=== PATIENT | male | born 1995 | race Caucasian/White ===

== ENCOUNTER 2016-05-20 15:34 | Emergency (ER) | payer BC ==
[~2016-05-20] VITALS: Ht 182.9 cm; Wt 95.0 kg
[2016-05-20 15:35] VITALS: TEMP 37.9; Ht 182.9 cm; Wt 95.0 kg
[2016-05-20] MEDS ORDERED: KETOROLAC TROMETHAMINE 30 MG/ML VIAL IV STA (15:46)
[2016-05-20] MEDS ORDERED: SODIUM CHLORIDE 0.9% 1000ML 1,000 ML IV STA ×2 (15:46→16:06)
[2016-05-20] MEDS ORDERED: DiphenhydrAMINE HCL 50 MG/ML VIAL IV STA (15:46)
[2016-05-20] MEDS ORDERED: PROCHLORPERAZINE 5 MG/ML 2 ML VIAL IV STA (15:46)
[2016-05-20] MEDS ORDERED: FAMOTIDINE 20MG/102 ML D5W IV STA (15:49)
[2016-05-20] MEDS ORDERED: [UNRECOGNIZED DRUG - OTHER] IM (15:52)
[2016-05-20 16:12] LABS: BASO % 0.1 %; BASO ABS # 0.01 K/uL (0-0.2); COMPLETE YES; EOS % 1.1 %; HEMATOCRIT 50.6 % (42-52); IG% 0.3 %; LYMPH ABS # 0.69 K/uL (1.2-3.4); MEAN CELL VOLUME 86.1 fL (80-100); MEAN PLATELET VOLUME 10.5 fL (7.4-10.4); MONO % 5.1 %; NEUT % 86.4 %; PLATELET COUNT 200 K/uL (130-400); RED BLOOD COUNT 5.88 M/uL (4.7-6.1); WHITE BLOOD COUNT 9.92 K/uL (4.8-10.8)
[2016-05-20 16:23] LABS: BUN/CREATININE RATIO 13.4 (10-20); CALCIUM 9.5 mg/dl (8.5-10.1); CREATININE 1.2 mg/dl (0.60-1.40); POTASSIUM 3.6 mmol/L (3.5-5.1)
[2016-05-20 18:07] LABS: URINE APPEARANCE CLEAR (CLEAR); URINE BILIRUBIN NEG (NEG); URINE COLOR YELLOW; URINE EPITHELIAL CELL AUTO 0-5 /lpf (0-5); URINE NITRITE NEG (NEG); URINE PH 7.5 (4.5-7.5); URINE SPECIFIC GRAVITY 1.022 (1.000-1.030); UROBILINOGEN NEG (NEG); ZZUR CULT IF INDIC CLEAN CATCH NO
[2016-05-20 18:10] LABS: MANUAL MICROSCOPIC REQUIRED? NO; REVIEW REQ? NO
--- NOTE | 2016-05-20 18:11 | DIAGNOSTIC IMAGING REPORT ---
BILIARY ULTRASOUND CLINICAL HISTORY: epigastric pain with elevated bilirubin COMPARISON STUDY: No previous studies for comparison. FINDINGS: The pancreas appears sonographically normal. The liver appears sonographically normal. The gallbladder appears sonographically normal. There is no ductal dilatation. The common bile duct measures 3 mm. There is no right-sided hydronephrosis. There is minimal prominence of the right renal pelvis/proximal ureter. IMPRESSION: Ultrasonographically normal pancreas, liver and gallbladder. Electronically signed by: Zen Stroud M.D. 05/20/2016 6:10 PM Dictated Date/Time: 05/20/2016 6:08 PM
[2016-05-20 18:37] VITALS: BP 133/83; PULSE 83; O2SAT 98
--- NOTE | 2016-05-20 18:49 | EMERGENCY ROOM VISIT NOTE ---
History Report prepared by Delgado: Phu Bear Under the Supervision of: Dr. Tommie Dhaliwal M.D. First contact with patient: 15:39 Chief Complaint: ABDOMINAL PAIN Stated Complaint: STROKE LIKE SYM,SEVERE ABD PAIN,CANT TALK History of Present Illness The patient is a 21 year old male who presents to the Emergency Room with complaints of persistent abdominal pain since he woke up this morning. The pain is localized to the middle of the abdomen, and is rated 5/10 in severity. He can also feel the pain in his back. He does not have any pain radiating to his sides. The patient has also had nausea, vomiting & diarrhea throughout the day. He cannot eat or drink without vomiting. The patient does not have any history of pancreatitis, gallbladder disease, or gastric ulcers. He has never had any surgeries of the abdomen. The patient has a history of migraines, with which he usually experiences tingling throughout his body and difficulty speaking. Today he started experiencing the difficulty with speech and tingling about one hour [employer], but has does not have any headaches whatsoever. He has a prescription for Toradol for migraines, which he hasn't taken today. Its been over a year since his last migraine. The patient was drinking alcohol this past weekend. The patient denies any urinary symptoms, swelling of the lower extremities, or rashes. Source of History: patient Onset: this morning Position: abdomen Symptom Intensity: 5/10 Timing: other (persistent) Associated Symptoms: + diarrhea, + nausea, + vomiting, No headache, No rash Review of Systems See HPI for pertinent positives & negatives. A total of 10 systems reviewed and were otherwise negative. Past Medical & Surgical Medical Problems: (1) Migraines Family History No pertinent family history Social History Smoking Status: Never Smoker Occupation Status: [employer] student Current/Historical Medications Scheduled PRN Ketorolac Tromethamine (Ketorolac Tromethamine), 2 ML IM DIRECTED PRN for Headache Allergies Coded Allergies: No Known Allergies (Unverified , 05/20/16) Physical Exam Vital Signs Date Time Temp Pulse Resp B/P Pulse Ox O2 Delivery O2 Flow Rate FiO2 05/20/16 18:37 83 18 133/83 98 Room Air 05/20/16 17:18 94 18 147/80 98 Room Air 05/20/16 15:35 37.9 115 18 189/107 99 Room Air Physical Exam GENERAL: Patient is anxious appearing and in minimal distress. HEENT: No acute trauma, normocephalic atraumatic, mucous membranes are dry, no nasal congestion, no scleral icterus. NECK: No stridor, no adenopathy, no meningismus, trachea is midline. LUNGS: No dyspnea. Clear to auscultation and equal bilaterally. No wheeze, no rhonchi. HEART: Mildly tachycardic, regular rhythm. No murmurs, rubs, gallops appreciated. ABDOMEN: Soft, vague epigastric tenderness to palpation, bowel sounds positive, no masses appreciated, no peritonitis. BACK: No midline tenderness, no CVA tenderness EXTREMITIES: Normal motion all extremities, no cyanosis, no edema. NEUROLOGIC: Alert and oriented, no acute motor or sensory deficits, no focal weakness, cranial nerves grossly intact. SKIN: No rash, no jaundice, no diaphoresis. Medical Decision & Procedures ER Provider Diagnostic Interpretation: US results as stated below per interpretation by me and the radiologist: BILIARY ULTRASOUND CLINICAL HISTORY: epigastric pain with elevated bilirubin COMPARISON STUDY: No previous studies for comparison. FINDINGS: The pancreas appears sonographically normal. The liver appears sonographically normal. The gallbladder appears sonographically normal. There is no ductal dilatation. The common bile duct measures 3 mm. There is no right-sided hydronephrosis. There is minimal prominence of the right renal pelvis/proximal ureter. IMPRESSION: Ultrasonographically normal pancreas, liver and gallbladder. Electronically signed by: Zen Stroud M.D. 05/20/2016 6:10 PM Dictated Date/Time: 05/20/2016 6:08 PM Laboratory Results 05/20/16 16:00 Red Blood Count 5.88, Mean Corpuscular Volume 86.1, Mean Corpuscular Hemoglobin 31.0, Mean Corpuscular Hemoglobin Concent 36.0, Mean Platelet Volume 10.5, Neutrophils (%) (Auto) 86.4, Lymphocytes (%) (Auto) 7.0, Monocytes (%) (Auto) 5.1, Eosinophils (%) (Auto) 1.1, Basophils (%) (Auto) 0.1, Neutrophils # (Auto) 8.57, Lymphocytes # (Auto) 0.69, Monocytes # (Auto) 0.51, Eosinophils # (Auto) 0.11, Basophils # (Auto) 0.01 05/20/16 16:00 Test 05/20/16 16:00 05/20/16 17:35 White Blood Count 9.92 K/uL (4.8-10.8) Red Blood Count 5.88 M/uL (4.7-6.1) Hemoglobin 18.2 g/dL (14.0-18.0) Hematocrit 50.6 % (42-52) Mean Corpuscular Volume 86.1 fL (80-100) Mean Corpuscular Hemoglobin 31.0 pg (25-34) Mean Corpuscular Hemoglobin Concent 36.0 g/dl (32-36) Platelet Count 200 K/uL (130-400) Mean Platelet Volume 10.5 fL (7.4-10.4) Neutrophils (%) (Auto) 86.4 % Lymphocytes (%) (Auto) 7.0 % Monocytes (%) (Auto) 5.1 % Eosinophils (%) (Auto) 1.1 % Basophils (%) (Auto) 0.1 % Neutrophils # (Auto) 8.57 K/uL (1.4-6.5) Lymphocytes # (Auto) 0.69 K/uL (1.2-3.4) Monocytes # (Auto) 0.51 K/uL (0.11-0.59) Eosinophils # (Auto) 0.11 K/uL (0-0.5) Basophils # (Auto) 0.01 K/uL (0-0.2) RDW Standard Deviation 40.1 fL (36.4-46.3) RDW Coefficient of Variation 12.9 % (11.5-14.5) Immature Granulocyte % (Auto) 0.3 % Immature Granulocyte # (Auto) 0.03 K/uL (0.00-0.02) Anion Gap 16.0 mmol/L (3-11) Est Creatinine Clear Calc Drug Dose 115.5 ml/min Estimated GFR () 98.9 Estimated GFR (Non- 85.3 BUN/Creatinine Ratio 13.4 (10-20) Calcium Level 9.5 mg/dl (8.5-10.1) Total Bilirubin 2.8 mg/dl (0.2-1) Direct Bilirubin 0.4 mg/dl (0-0.2) Aspartate Amino Transf (AST/SGOT) 20 U/L (15-37) Alanine Aminotransferase (ALT/SGPT) 40 U/L (12-78) Alkaline Phosphatase 96 U/L (45-117) Total Protein 8.2 gm/dl (6.4-8.2) Albumin 4.6 gm/dl (3.4-5.0) Lipase 89 U/L (73-393) Urine Color YELLOW Urine Appearance CLEAR (CLEAR) Urine pH 7.5 (4.5-7.5) Urine Specific [place] 1.022 (1.000-1.030) Urine Protein NEG (NEG) Urine Glucose (UA) NEG (NEG) Urine Ketones TRACE (NEG) Urine Occult Blood NEG (NEG) Urine Nitrite NEG (NEG) Urine Bilirubin NEG (NEG) Urine Urobilinogen NEG (NEG) Urine Leukocyte Esterase NEG (NEG) Urine WBC (Auto) 0 /hpf (0-5) Urine RBC (Auto) 0-4 /hpf (0-4) Urine Hyaline Casts (Auto) 0 /lpf (0-5) Urine Epithelial Cells (Auto) 0-5 /lpf (0-5) Urine Bacteria (Auto) NEG (NEG) Laboratory results as reviewed by me. Medications Administered Medications (Trade) Dose Ordered Sig/Jacque Route Start Time Stop Time Status Last Admin Dose Admin Ketorolac Tromethamine (Toradol Inj) 30 mg NOW STAT IV 05/20/16 15:46 05/20/16 15:48 DC 05/20/16 16:03 30 MG Prochlorperazine Edisylate (Compazine Inj) 10 mg NOW STAT IV 05/20/16 15:46 05/20/16 15:48 DC 05/20/16 16:03 10 MG Diphenhydramine HCl 50 mg 50 mg NOW STAT IV 05/20/16 15:46 05/20/16 15:48 DC 05/20/16 16:02 50 MG Sodium Chloride (Nss 1000ml) 1,000 ml @ 999 mls/hr Q1H1M STAT IV 05/20/16 15:46 05/20/16 16:46 DC 05/20/16 15:46 999 MLS/HR Famotidine 20 mg 20 mg ONE STAT IV 05/20/16 15:49 05/20/16 15:51 DC 05/20/16 16:04 20 MG Sodium Chloride (Nss 1000ml) 1,000 ml @ 999 mls/hr Q1H1M STAT IV 05/20/16 16:06 05/20/16 17:06 DC 05/20/16 16:06 999 MLS/HR Ondansetron HCl (ZOFRAN ODT 4MG Home Pack) 1 homepack UD ONCE PO 05/20/16 19:00 05/20/16 19:01 DC 05/20/16 18:59 1 HOMEPACK ED Course 1540: The patient was evaluated in room B7. A complete history and physical exam was performed. 1546: NSS 1000 ml @ 999 mls/hr, Benadryl 50 mg IV, Compazine 10 mg IV, Toradol 30 mg IV. 1549: Famotidine 20 mg IV. 1606: NSS 1000 ml @ 999 mls/hr. 1630: The patient previously had elevated liver enzymes with normal ultrasounds. I discussed the pros and cons of redoing it. He agrees to having another ultrasound. 1845: Reassessed the patient. He is feeling fine and has no further tingling. I discussed the findings and treatment plan with him. He verbalized understanding and agreement. The patient is ready for discharge. 1900: Zofran Odt 4 mg PO homepack. Medical Decision Differential: Gastroenteritis, Food Borne, Esophageal Perforation, , Electrolyte Abnormality, Dehydration, Intraabdominal Infection, UTI/ Pyelonephritis, Bowel Obstruction, Biliary Pathology, amongst other pathology entertained. 21 yr old male arrives iwht epigastric discomfort and nausea/diarrhea after drinking heavily all weekend. Feeling much improved with above though with elevated Bili felt US RUQ reasonable. Patient admits history of being told this but with symptoms seems that getting US is necessary. He is stable, comfortable and in no distress. Abdominal exam benign. US negative for acute process. I suspect he has Gilbert disease of some sort. Discussed RTED if worsening or other concerns. Suggested anti-acid if symptoms start returning. Impression Primary Impression: Epigastric abdominal pain Additional Impressions: Nausea Diarrhea Paresthesia Elevated bilirubin Scribe Attestation The scribe's documentation has been prepared under my direction and personally reviewed by me in its entirety. I confirm that the note above accurately reflects all work, treatment, procedures, and medical decision making performed by me. Departure Information Dispostion Home / Self-Care Referrals No Doctor, Assigned (PCP) Forms HOME CARE DOCUMENTATION FORM, IMPORTANT VISIT INFORMATION Patient Instructions ED Epigastric Pain Sy[facility] Problem Qualifiers Additional Impressions: Diarrhea Diarrhea type: unspecified type Qualified Codes: R19.7 - Diarrhea, unspecified
[2016-05-20] MEDS ORDERED: ONDANSETRON HOME PACK 4MG OD TAB PO ONE (19:00)
== END 2016-05-20 19:05 | disposition home or self-care (01) ==
LOC: C.EDB 15:35
DX: R10.13 Epigastric pain (principal); R11.0 Nausea; R19.7 Diarrhea, unspecified; R20.0 Anesthesia of skin; R17 Unspecified jaundice; G43.909 Migraine, unspecified, not intractable, without status migrainosus